=== PATIENT | female | born 2000 | race Caucasian/White ===

== ENCOUNTER 2019-08-30 14:17 | Emergency (ER) | payer OTHER ==
[~2019-08-30] VITALS: Ht 154.9 cm; Wt 59.0 kg
[2019-08-30] MEDS ORDERED: PROMETH-CODEIN 65 ML PO (18:39)
[2019-08-30] MEDS ORDERED: MEDROLPACK PO (18:39)
[2019-08-30] MEDS ORDERED: BUDESONIDE0.5 MG/2 M IH (18:39)
[2019-08-30] MEDS ORDERED: SINGULAIR10 MG PO (18:39)
[2019-08-30] MEDS ORDERED: MUCINEX DM ER1 EAC1 PO (18:39)
[2019-08-30] MEDS ORDERED: IPRAT-ALBUT 0.5-3 ML IH (18:39)
== END 2019-08-30 19:00 | disposition home or self-care (01) ==
LOC: ER 14:17
DX: J45.998 Other asthma (principal)